=== PATIENT | male | born 1985 | race Caucasian/White ===

== ENCOUNTER 2016-05-16 13:35 | Emergency (ER) | payer MEDICAID, OTHER ==
[~2016-05-16] VITALS: Ht 182.9 cm; Wt 124.7 kg
[2016-05-16 13:38] VITALS: BP 145/76
[2016-05-16 14:32] LABS: Basophils # (auto) 0.1 uL; Basophils % (auto) 0.4 % (0.0-2.0); Eosinophils # (auto) 0 uL; Eosinophils % (auto) 0.1 % (0.0-7.0); Hematocrit 51.8 % (41.0-53.0); Hemoglobin 17.4 g/dL (13.5-17.5); Lymphocytes # (auto) 0.6 uL; Lymphocytes % (auto) 4.1 % (10.0-50.0); Mean Corpuscular Hemoglobin 30.8 pg (28.0-32.0); Mean Corpuscular Hgb Conc. 33.6 g/dL (32.0-36.0); Mean Corpuscular Volume 91.5 fL (80.0-100.0); Mean Platelet Volume 9.7 fL (7.4-10.4); Monocytes # (auto) 0.4 uL; Monocytes % (auto) 2.4 % (0.0-12.0); Neutrophils # (auto) 13.9 uL; Platelet Count (auto) 317 10^3/uL (140-450); Red Cell Distribution Width 13.6 % (11.6-16.0); White Blood Cell 14.9 10^3/uL (4.4-10.8)
[2016-05-16 14:41] LABS: Urine Bilirubin Negative (Negative); Urine Blood 2+ /uL (Negative); Urine Color Yellow (Yellow); Urine Glucose Normal (Normal); Urine Ketone Negative (Negative); Urine Nitrite Negative (Negative); Urine RBC 41 /hpf (0 - 3); Urine Urobilinogen Normal (Negative); Urine pH 5.5 (5.0-8.0)
[2016-05-16 15:06] LABS: Albumin 4.1 g/dL (3.4-5.0); BUN/Creatinine Ratio 17.2; Bilirubin, Total 1.1 mg/dL (0.2-1.0); Calcium 9.3 mg/dL (8.5-10.1); Potassium 4.1 mmol/L (3.5-5.1); Total Protein 8.2 g/dL (6.4-8.2)
== END 2016-05-16 20:30 | disposition left against medical advice (07) ==
LOC: ER 13:35
DX: R10.9 Unspecified abdominal pain (principal); R11.10 Vomiting, unspecified; Z53.21 Procedure and treatment not carried out due to patient leaving prior to being seen by health care provider
CPT/HCPCS: 36415; 80053; 81001; 85025

== ENCOUNTER 2016-12-30 16:20 | Emergency (ER) | payer MEDICAID ==
[~2016-12-30] VITALS: Ht 167.6 cm; Wt 127.0 kg
[2016-12-30 18:28] VITALS: BP 157/92
[2016-12-30] MEDS ORDERED: KETOROLAC TROMETH 60MG/2ML VIAL IM ONE (19:30)
[2016-12-30] MEDS ORDERED: HYDROcodone-ACET 10/325MG TAB PO ONE (19:30)
== END 2016-12-30 20:04 | disposition home or self-care (01) ==
LOC: ER 16:20
DX: S92.355A Nondisplaced fracture of fifth metatarsal bone, left foot, initial encounter for closed fracture (principal); W52.XXXA Crushed, pushed or stepped on by crowd or human stampede, initial encounter; Y93.89 Activity, other specified; Y99.0 Civilian activity done for income or pay; Y92.69 Other specified industrial and construction area as the place of occurrence of the external cause
CPT/HCPCS: 29515; 73630; 96372; 99284; J1885

== ENCOUNTER 2018-06-01 12:31 | Emergency (ER) | payer MEDICAID ==
[~2018-06-01] VITALS: Ht 182.9 cm; Wt 144.7 kg
[2018-06-01 12:38] VITALS: BP 149/81
[2018-06-01 12:55] LABS: Basophils # (auto) 0 uL; Basophils % (auto) 0.7 % (0.0-2.0); Eosinophils # (auto) 0.1 uL; Eosinophils % (auto) 1.3 % (0.0-7.0); Hematocrit 48.3 % (41.0-53.0); Hemoglobin 16.9 g/dL (13.5-17.5); Lymphocytes # (auto) 1.9 uL; Lymphocytes % (auto) 26.3 % (10.0-50.0); Mean Corpuscular Hemoglobin 32.2 pg (28.0-32.0); Mean Corpuscular Volume 92.2 fL (80.0-100.0); Monocytes # (auto) 0.5 uL; Monocytes % (auto) 7.7 % (0.0-12.0); Neutrophils # (auto) 4.5 uL; Nucleated Red Blood Cells % 0.1 %; Platelet Count (auto) 242 10^3/uL (140-450); Red Blood Cells 5.23 10^6/uL (4.5-5.90); Red Cell Distribution Width 13.2 % (11.8-14.3); White Blood Cell 7.1 10^3/uL (4.4-10.8)
[2018-06-01 13:17] LABS: Albumin 3.8 g/dL (3.4-5.0); Anion Gap 6 (5-15); Blood Urea Nitrogen 10 mg/dL (7-18); Calcium 8.9 mg/dL (8.5-10.1); Carbon Dioxide 24 mmol/L (21-32); Chloride 107 mmol/L (98-107); Glucose 91 mg/dL (74-106); Sodium 137 mmol/L (136-145)
[2018-06-01 13:22] LABS: Alanine Aminotransferase 23 U/L (16-61); Alkaline Phosphatase 72 U/L (45-117); Aspartate Aminotransferase 14 U/L (15-37); GFR African American 110 mL/min; GFR Non-African American 91 mL/min; Total Protein 7.7 g/dL (6.4-8.2)
== END 2018-06-01 14:24 | disposition home or self-care (01) ==
LOC: ER 12:33
DX: R07.89 Other chest pain (principal); M25.512 Pain in left shoulder
CPT/HCPCS: 36415; 71046; 80053; 84484; 85025; 93005